=== PATIENT | female | born 1960 | race Caucasian/White ===

== ENCOUNTER → 2019-04-22 10:42 | Outpatient (CLI) | payer OTHER, SELFPAY ==
[2019-04-22 12:06] LABS: Add Manual Diff / Slide Review NO; Basophils Absolute Auto 0 /uL (0-100); Basophils Percent Auto 0.7 % (0-2); Eosinophils Absolute Auto 200 /uL (0-450); Eosinophils Percent Auto 4.1 % (2-4); Hematocrit 39.8 % (36-46); Hemoglobin 13.5 g/dL (12.0-16.0); Lymphocytes Absolute Auto 1800 /uL (1100-4500); Lymphocytes Percent Auto 33.8 % (25-40); Mean Corpuscular HGB Conc 33.9 % (30-36); Mean Corpuscular Hemoglobin 31.8 PG (26-34); Mean Corpuscular Volume 93.6 fL (80-100); Monocytes Absolute Auto 400 /uL (0-900); Monocytes Percent Auto 7.6 % (3-14); Neutrophils Absolute Auto 2900 /uL (1500-7000); Neutrophils Percent Auto 53.8 % (50-75); Platelet Count 267 X10^3/uL (150-400); Red Blood Cell Count 4.25 X10^6/uL (4.0-5.2); Red Cell Distribution Width 13.6 % (11.6-14.8); White Blood Cell Count 5.4 X10^3/uL (4.5-11.0)
[2019-04-22 12:47] LABS: Carbon Dioxide 29 mmol/L (22-32); Chloride 103 mmol/L (98-107); HEMOLYSIS < 15 (0-50); Potassium 5.2 mmol/L (3.4-5.1); Sodium 142 mmol/L (137-145)
== END ==
PROVIDERS: Visit Provider Orthopaedic Surgery
DX: Z01.818 Encounter for other preprocedural examination (principal); Z01.812 Encounter for preprocedural laboratory examination; M17.10 Unilateral primary osteoarthritis, unspecified knee
CPT/HCPCS: 36415; 80051; 85025; 93005

== ENCOUNTER 2019-05-25 08:36 | Inpatient (IN) | payer OTHER, SELFPAY ==
[2019-05-19 07:39] VITALS: BMI 37.9
[2019-05-25] VITALS (13 sets, daily range): BP systolic 79–163; BP diastolic 39–86; PULSE 53–88; RESP 14–20; TEMP 36.1–37.1; O2SAT 94–99; BMI 37.9
--- NOTE | 2019-05-25 06:00 | DI.RAD.S_ITS ---
PROCEDURE: XR KNEE RT 1TO2V INDICATIONS: post op right TKA TECHNIQUE: 2 view(s) of the knee acquired. COMPARISON: None. FINDINGS: Bones: Patient is status post knee joint arthroplasty. Hardware components are in expected positions. Visualized bony structures are intact. Soft tissues: Overlying postoperative changes are noted. IMPRESSION: Total knee arthroplasty with prosthesis in anatomic alignment. Dictated by: Kassidy Lebron M.D. on 05/25/2019 at 12:45 Approved by: Kassidy Lebron M.D. on 05/25/2019 at 12:45
[2019-05-25] MEDS: LACTATED RINGERS 1,000 ML 42 ML IV (09:13)
[2019-05-25] MEDS: PREGABALIN 75 MG CAPSULE PO (09:33)
[2019-05-25] MEDS: CELECOXIB 200 MG CAPSULE PO (09:34)
[2019-05-25] MEDS: ACETAMINOPHEN 325 MG TABLET 975 MG PO (09:34)
--- NOTE | 2019-05-25 10:01 | PM.PREOP ---
Pre-operative Note Interval Note History & Physical reviewed/Exam performed by Physician: Yes Changes to H&P: No
--- NOTE | 2019-05-25 10:01 | PM.OP.1 ---
Operative Date/Time/Diagnoses Date of procedure: 05/25/19 Time of procedure: 12:02 Pre-op diagnosis: Right knee osteoarthritis Post-op diagnosis: same Procedure & Clinicians Procedure: Right total knee arthroplasty Same procedure as scheduled: Yes Indications: The patient presents today for total knee arthroplasty after failure of conservative treatment. The nature of the procedure including the risks and benefits, alternatives, postoperative course and expected outcome were discussed and all questions answered. Consent was obtained. Operative site confirmed and marked. Surgeon: Mu Gutierrez Heater Planer Operator: Christopher Gonsalves Anesthesia Type: General, Spinal and Local Operative Notes Findings: The patient had severe osteoarthritis with varus alignment and a approximate 12 degree flexion contracture. A +2 femoral cut was made due to this contracture. Approximately 10 mm was taken from the less affected lateral side for the tibial cut. The knee balanced nicely medial lateral with routine osteophyte removal and soft tissue releases. The knee went easily into full extension. Patellar tracking was excellent. Closure Type: primary Specimen(s): none sent Prosthetic devices, grafts, tissues, transplants, or devices: Pulido and Nephew Arabella BCS: 4 femoral component, 3 tibial component, 9 mm BCS polyethylene tray and 35 x 7.5 mm round patella Applied: implant(s) Estimated Blood Loss (mL): 10 Blood products transfused: none Tourniquet time (min): 44 Procedure in detail: The patient was taken to the operative suite and placed under general and spinal anesthesia. The patient was given prophylactic antibiotics prior to surgery. The patient was also given tranexamic acid, 1 g, just prior to surgery for postoperative hemostasis. The lateral knee was prepped and the joint injected with 20 mL of 1% Lidocaine with epinephrine. The knee was then prepped and draped in usual sterile fashion. The leg was exsanguinated with an Esmarch dressing and the tourniquet raised to 250 torr. A 15 cm anterior incision was made. Next a medial trivector arthrotomy was made. The extensor mechanism was marked to ensure accurate repair. Initial exposing dissection was carried out medially and laterally. The knee was then flexed and the intramedullary femoral guide deedee placed. The distal femoral cut was made in 6? of valgus at the +2 position. The femoral size was measured and the appropriate cutting block was then placed and the anterior, posterior and chamfer cuts made. The intramedullary tibial alignment deedee was then placed. The guide was set to remove approximately 10 mm from the less affected lateral side. The proximal tibial cut was then made with an oscillating saw. All meniscus and bony debris was then removed. Posterior femoral osteophytes removed with a curved osteotome. Flexion extension gaps were checked. No specific balancing was required other than routine exposure and removal of osteophytes. The soft tissues were then injected with a combination of 20 mL of half percent Marcaine with epinephrine and 20 mL of Exparel. The trial components were then placed. The knee was then extended and the patellar thickness was measured and a cut made removing approximately 7-8 mm of bone. The patella was then sized and drilled. Some excess lateral bone was excised and the patellofemoral ligament released. The knee went into full extension and flexion beyond 120?. There was excellent medial-lateral balance throughout motion. Patellar tracking was excellent. The trial components were removed and the knee was cleansed with Pulsavac irrigation and dried. The final components were cemented with high viscosity vacuum mixed bone cement with antibiotics. The joint was filled with a dilute Betadine solution. The knee was held in extension and the patellar clamped until the cement was adequately cured. The knee was then irrigated. The extensor mechanism was closed with 5 interrupted #1 Vicryl sutures and a running Quill suture at approximately 90 degrees of flexion. The joint was then injected with a combination of 1 g of tranexamic acid and 20 mL of quarter percent Marcaine with epinephrine. The subcutaneous tissue was closed with 2 0 Vicryl. The skin was closed with magan and surgical adhesive. An Aquacel dressing and Kameron wrap were then applied. The patient tolerated the procedure well and was returned to recovery room in good condition. Complications: none Post-operative Condition: stable Disposition: PACU Plan for aftercare: [facility] protocol for total knee arthroplasty.
[2019-05-25] MEDS: CEFAZOLIN 2 GM/100 ML FROZ.PIGGY IV ×2 (10:34→19:32)
--- NOTE | 2019-05-25 11:06 | SUR.OPER ---
Supine on padded OR bed. Pillow under head, arms secured on padded armboards <90 degree abduction. Safety belt across torso. Non-operative leg secured with tape over blanket over lower leg. Operative leg secured in DeMayo/Ubaldo positioner. Foam padded brace at thigh of operative leg.
[2019-05-25] MEDS: BUPIVACAINE 0.25% W/ EPI (PF) 20 ML, TRANEXAMIC ACID 1,000 MG, SODIUM CHLORIDE 0.9% 10 ML INJ (11:10)
[2019-05-25] MEDS: BUPIVACAINE 0.25% W/ EPI (PF) 40 ML, BUPIVACAINE LIPOSOME 266 MG, SODIUM CHLORIDE 0.9% ... INJ (11:12)
[2019-05-25] MEDS: TRANEXAMIC ACID 1,000 MG VIAL 1000 MG INJ (11:13)
[2019-05-25] MEDS: LIDOCAINE 1% W/EPI 20 ML INJ (11:15)
[2019-05-25] MEDS: LACTATED RINGERS 1,000 ML 125 ML IV ×2 (13:40→20:19)
[2019-05-25] MEDS: IBUPROFEN 400 MG TABLET PO ×3 (13:40→20:18)
--- NOTE | 2019-05-25 15:02 | PC.NURSE ---
Assess- Patient to floor at 1245. She had a spinal to her r.knee and has feeling down to about her thigh. She denies pain. Patient is on Lactated Ringers at 125cc/hr and tolerating well. Given Ibuprofen and pt is visiting with her daughter and . Tolerating ice chips and ate some vanilla pudding. Patient has an aquacel dressing to her r.knee without any rylee wrap.
--- NOTE | 2019-05-25 16:15 | PT.IIE ---
Current Diagnoses Unilateral primary osteoarthritis, right knee (05/25/19) Surgery Performed Operation Date: 05/25/19 10:45 Actual Procedures p Total Knee Arthroplasty(Right) - Mu Gutierrez MD Surgical History (Last Updated 05/19/19 @ 08:08 by Elaina Love, RN) History of surgery (Acute) Medical History (Last Updated 05/19/19 @ 08:08 by Elaina Love RN) Easy bruisability (Acute) Osteoarthritis (Acute) Physical Therapy Inpatient Evaluation/Re-Eval M1 PT/OT-IP Prior Functional Status Start: 05/25/19 17:42 Freq: NEEDED Status: Active Protocol: Document 05/25/19 16:15 AB (Rec: 05/25/19 18:03 AB [id number]) Medical Review Prior Functional Status Medical History Reviewed Yes Communication able to make needs known Mobility and Gait pt stated that she is inependent with all mobilities and ambultion without AD Social History Household Members spouse Living Arrangements House Number of Floors (Floors) Two Floors Number of Stairs To Enter/Railing? stated that she stays on the main level of the house has no steps to enter the house Home Environment High Toilet,Walk in Shower Home Equipment Front Wheel Walker,Straight Cane,Crutches,Hand Held Shower ,Grab Bars In Shower Additional Social History Comment daughter is also staying with pt fo the holidays and can assist pt at home M2 PT-IP Current Condition Start: 05/25/19 17:42 Freq: NEEDED Status: Active Protocol: Document 05/25/19 16:15 AB (Rec: 05/25/19 18:03 AB [id number]) Physical Therapy Current Condition Current Condition Evaluation Date 05/25/19 Treatment Diagnosis s/p R TKA; difficulty in walking Onset Date 05/25/19 Weight Bearing Status Weight Bearing Status Weight Bear as Tolerated Allowed Weight Bearing Amount (enter % WBAT RLE or #) (%) M3 PT-IP Subjective Start: 05/25/19 17:42 Freq: NEEDED Status: Active Protocol: Document 05/25/19 16:15 AB (Rec: 05/25/19 18:03 AB [id number]) Subjective Physical Therapy Visit Type Type Initial Evaluation Visit Start Time 16:15 Visit Stop Time 16:47 Total Visit Minutes 32 Number of FUNERAL WORKERS Visits 0 Physical Therapy Visit Comments Patient Comments pt stated she is sleepy but agreeable to do PT Therapy Pain Assessment Pain When Pain Assessed During Mobility Pain Present Pain Present Pain Reported Location Right Knee Intensity 3 Scale Used increases with mobility Pain Management Techniques Apply Cold,Re-positioning, Timing of Activity with Medications M4 PT-IP Mobility and Gait Start: 05/25/19 17:42 Freq: NEEDED Status: Active Protocol: Document 05/25/19 16:15 AB (Rec: 05/25/19 18:03 AB [id number]) PT-Bed Mobility Assessment Supine to Sit Supine to Sit Standby Assistance Sit to Supine Sit to Supine Standby Assistance Scooting Scooting to Edge of Bed Standby Assistance PT-Transfer Assessment Sit to and From Stand Sit to and from Stand Minimal Assistance,1 Person Assistance Equipment Transfer Assistive Device Gait Belt,Front Wheeled Walker Orthotic/Prosthetic Devices or Brace: No Transfers Transfer Destination Toilet Transfer Technique ambulated using fWW Transfer Ability Level of Assist Minimal Assistance,1 Person Assistance,Use of Upper Extremities Comments Mobility Comments supine BP: 106/12 pt completed supine to sit SBA. BP sitting on EOB: 127/73. pt c/ o feeling lightheaded and BP checked again after ~ 2 min: 114/68. completed sit to stand min A and cues and ambulated to the toilet using FWW min A and cues. pt required min A for controlled descent to the toilet. completed sit to stand from the toilet using grab bar min A and cues and ambulated back to bed using FWW min A and cues. completed sit to supine SBA. positioned pt in bed. call light and table placed within reach. BP at end of tx session: 109/74 Gait Assessment Gait Gait Assistance Required: Minimum Assistance Distance (Feet) 12 Able to Maintain Weight Bearing Status Yes During Gait Assistive Devices Assistive Device Gait Belt,Front Wheeled Walker Orthotic/Prosthetic Devices or Brace: No Gait Deviations General Gait Pattern Antalgic,Decreased Stride Length,Decreased Feet Clearance Factors Limiting Gait Function Factors Limiting Gait Function Decreased Activity Tolerance, Decreased Strength,Limited Range of Motion,Pain,Poor Balance,Poor Safety Awareness PT-Balance Assessment Sitting Balance and Reactions Static Sitting Balance Ability Good Dynamic Sitting Balance Ability Good Standing Balance and Reactions Static Standing Balance Ability Fair Dynamic Standing Balance Ability Fair Device Used FWw M5 PT-IP Objective Assessments Start: 05/25/19 17:42 Freq: NEEDED Status: Active Protocol: Document 05/25/19 16:15 AB (Rec: 05/25/19 18:03 AB [id number]) Orientation Orientation/Cognition Level of Alertness Alert Orientation Name,Place,Situation Language Function Ability No Deficits Noted Safety Awareness Understands Safety Issues Memory Description No Deficits Noted Gross Range of Motion Lower Extremity ROM Impairments R knee flexion: ~ 90 deg Strength Lower Extremity Strength Assessment Right Impaired Hip 4-/5 Knee 3+/5 Coordination Assessment Gross Coordination Gross Coordination WNL M6 PT-IP Treatment Start: 05/25/19 17:42 Freq: NEEDED Status: Active Protocol: Document 05/25/19 16:15 AB (Rec: 05/25/19 18:03 AB [id number]) Physical Therapy Treatment Exercises Exercises Quad Sets,Heel Slides Education Education Provided Precautions,Weight Bearing Status,Post-Op Packet,Safety M7 PT-IP Assessment and Plan Start: 05/25/19 17:42 Freq: NEEDED Status: Active Protocol: Document 05/25/19 16:15 AB (Rec: 05/25/19 18:03 AB [id number]) PT Summary Assessment and Plan Potential Rehabilitation Potential Good Status of Condition at Evaluation Stable Summary Impairments Pain,ROM,Strength,Balance, Coordination,Sensation,Bed Mobility,Transfers,Gait, Activity Tolerance Assessment Summary pt requiring min A with mobility and will likely progress during hospital stay. pt has her family to assist her. will continue to assess progress and will conduct caregiver training when needed . Goals Bed Mobility Goal Independent Transfer Goal Independent,Front Wheeled Walker Gait Goal Independent,Front Wheel Walker Gait Distance 200 Days to Meet Goals 5 Frequency of Treatment Frequency Of Treatment Twice a Day Treatment Plan Physical Therapy Treatment Plan Bed Mobility Training,Transfer Training,Gait Training, Therapeutic Exercise,Balance Retraining,Post Op Education, Discharge Planning,Hot or Cold Pack,Neuromuscular Re-ed, Coordination Retraining,Manual Therapy Recommendations To Nursing Amount of Assist Needed 1 Person Assist Discharge Recommendations PT Discharge Recommendations Home with Assistance, Outpatient PT
[2019-05-25] MEDS: ACETAMINOPHEN 325 MG TABLET 650 MG PO (18:12)
[2019-05-25] MEDS: ASPIRIN EC 81 MG TABLET PO (20:18)
--- NOTE | 2019-05-25 22:28 | PC.NURSE ---
Assumed care of pt at 1500. Pt resting in bed during bedside hand-off. CMS+. Reports full sensation to RLE. Drsg c/d/i. Bruising an swelling around knee noted. P.T. in for eval and treat. See P.T. documentation for details. Using lin path I.S.; enc to use 10x/hr while awake. Reporting mild pain and requests Tylenol. Rec VTO from Dr. Todd for Tylenol and Oxycodone. Pt reports she has scripts for Oxycode for post-op pain once she is d/c from hospital. Calling appropriate for needs. Bed alarm on for safety.
[2019-05-26] MEDS: IBUPROFEN 400 MG TABLET PO ×4 (00:04→12:39)
[2019-05-26] MEDS: ACETAMINOPHEN 325 MG TABLET 650 MG PO ×3 (00:04→12:40)
[2019-05-26] MEDS: CEFAZOLIN 2 GM/100 ML FROZ.PIGGY IV (03:04)
[2019-05-26 03:22] VITALS: BP 141/58; PULSE 58; RESP 17; TEMP 36.8; O2SAT 97
[2019-05-26 06:04] LABS: Hematocrit 34.2 % (36-46); Hemoglobin 11.5 g/dL (12.0-16.0)
[2019-05-26 07:30] VITALS: BP 117/64; PULSE 66; RESP 16; TEMP 36.5; O2SAT 97
[2019-05-26 08:08] VITALS: PULSE 69; O2SAT 99
[2019-05-26] MEDS: ASPIRIN EC 81 MG TABLET PO (09:14)
--- NOTE | 2019-05-26 09:18 | PT.IPTN ---
This is to certify that I have reviewed this documentation and is involved with this pt's care. Current Diagnoses Unilateral primary osteoarthritis, right knee (05/25/19) Surgery Performed Operation Date: 05/25/19 10:45 Actual Procedures p Total Knee Arthroplasty(Right) - Mu Gutierrez MD Physical Therapy Treatment Note M2 PT-IP Current Condition Start: 05/25/19 17:42 Freq: NEEDED Status: Discharge Protocol: Document 05/25/19 16:15 AB (Rec: 05/25/19 18:03 AB [id number]) Physical Therapy Current Condition Current Condition Evaluation Date 05/25/19 Treatment Diagnosis s/p R TKA; difficulty in walking Onset Date 05/25/19 Weight Bearing Status Weight Bearing Status Weight Bear as Tolerated Allowed Weight Bearing Amount (enter % WBAT RLE or #) (%) M3 PT-IP Subjective Start: 05/25/19 17:42 Freq: NEEDED Status: Discharge Protocol: Document 05/26/19 09:18 MT (Rec: 05/26/19 12:02 MT [id number]) Subjective Physical Therapy Visit Type Type Treatment Note Visit Start Time 09:18 Visit Stop Time 09:38 Total Visit Minutes 20 Number of FLIGHT SURGEON Visits 0 Physical Therapy Visit Comments Patient Comments Pt aggreable to do PT Therapy Pain Assessment Pain When Pain Assessed pt :sore M4 PT-IP Mobility and Gait Start: 05/25/19 17:42 Freq: NEEDED Status: Discharge Protocol: Document 05/26/19 09:18 MT (Rec: 05/26/19 12:02 MT [id number]) PT-Bed Mobility Assessment Supine to Sit Supine to Sit Independent Scooting Scooting to Edge of Bed Standby Assistance PT-Transfer Assessment Sit to and From Stand Sit to and from Stand Independent,Standby Assistance ,Use of Upper Extremities Equipment Transfer Assistive Device Gait Belt,Front Wheeled Walker Orthotic/Prosthetic Devices or Brace: No Transfers Transfer Destination Chair,Toilet Transfer Technique ambulated using fWW Transfer Ability Level of Assist Standby Assistance,Use of Upper Extremities Comments Mobility Comments Pt was found sitting up in bed rior to start of treatment. Pt was able to get to sitting EOB with SBA. Pt's Bp in sitting was 111/58 and she reported no symptoms of dizziness of lightheadedness. Pt attempted sit to stand from bed, but was asked to sit back down and try again, because she used the 2WW to pull herself and PT had to brace walker to prevent it from tipping back on the pt. Pt was educated to push up from bed rather than pull up when standing using the 2WW. Pt performed second attempt at sit to stand from bed using 2WW and SBA. She required cueing to tighten through her quad to maintian stability in her R LE. Pt initiated ambulation. Pt ambulated to the toilet. She was able to perform stnd<> sit using 2WW to toilet independently and maintain her pericare without assistance. Pt performed tand to sit in chair independently using 2WW and was positioned with her call light and table within reach. Gait Assessment Gait Gait Assistance Required: Standby Assistance Distance (Feet) 150 Able to Maintain Weight Bearing Status Yes During Gait Assistive Devices Assistive Device Gait Belt,Front Wheeled Walker Orthotic/Prosthetic Devices or Brace: No Gait Deviations General Gait Pattern Antalgic,Decreased Stride Length,Decreased Feet Clearance Factors Limiting Gait Function Factors Limiting Gait Function Decreased Activity Tolerance, Decreased Strength,Limited Range of Motion,Pain,Poor Balance,Poor Safety Awareness Comments Gait Comments Pt ambulated 20 feet to toilet using 2WW and SBA. Pt then ambulated within room and hallway using 2WW 200ft and SBA, with minimal cueing for tightening quad for stability and safety. M5 PT-IP Objective Assessments Start: 05/25/19 17:42 Freq: NEEDED Status: Discharge Protocol: Document 05/25/19 16:15 AB (Rec: 05/25/19 18:03 AB [id number]) Orientation Orientation/Cognition Level of Alertness Alert Orientation Name,Place,Situation Language Function Ability No Deficits Noted Safety Awareness Understands Safety Issues Memory Description No Deficits Noted Gross Range of Motion Lower Extremity ROM Impairments R knee flexion: ~ 90 deg Strength Lower Extremity Strength Assessment Right Impaired Hip 4-/5 Knee 3+/5 Coordination Assessment Gross Coordination Gross Coordination WNL M6 PT-IP Treatment Start: 05/25/19 17:42 Freq: NEEDED Status: Discharge Protocol: Document 05/26/19 09:18 MT (Rec: 05/26/19 12:02 MT [id number]) Physical Therapy Treatment Education Education Provided Safety M7 PT-IP Assessment and Plan Start: 05/25/19 17:42 Freq: NEEDED Status: Discharge Protocol: Document 05/26/19 09:18 MT (Rec: 05/26/19 12:02 MT [id number]) PT Summary Assessment and Plan Potential Rehabilitation Potential Good Status of Condition at Evaluation Stable Summary Impairments Pain,ROM,Strength,Balance, Coordination,Sensation,Bed Mobility,Transfers,Gait, Activity Tolerance Progress Towards Goals Progressing Toward Goals Assessment Summary Pt is generally SBA for her mobility and gait using 2WW. She is still appropriate for a discharge destination of home with asssitance from and daughter and following discharge. Pt still requires some cues for safety with her gait/mobility and puts a lot of weight through her UE on the 2WW, so she will continue to benefift from skilled PT in order to ensure that family at home can provde enough assistance to meet the patient 's needs and increase the patient's stability and safety in gait and transfers. Goals Bed Mobility Goal Independent Transfer Goal Independent,Front Wheeled Walker Gait Goal Independent,Front Wheel Walker Gait Distance 200 Days to Meet Goals 5 Frequency of Treatment Frequency Of Treatment Twice a Day Treatment Plan Physical Therapy Treatment Plan Bed Mobility Training,Transfer Training,Gait Training, Therapeutic Exercise,Balance Retraining,Post Op Education, Discharge Planning,Hot or Cold Pack,Neuromuscular Re-ed, Coordination Retraining,Manual Therapy Recommendations To Nursing Amount of Assist Needed 1 Person Assist Discharge Recommendations PT Discharge Recommendations Home with Assistance, Outpatient PT
--- NOTE | 2019-05-26 10:39 | P.DS_ITS ---
History of Present Illness History of Present Illness Date Patient Seen: 05/26/19 Time Patient Seen: 10:39 Chief complaint: [id number] Narrative: Hospital day 2, postop day 1 following right total knee arthroplasty by Dr. Gutierrez. Patient has remained stable postoperatively. Has progressed well with physical therapy at [facility] feel she is stable to go home. She is sc heduled go to [facility] in [place]. She is a [facility] patient and has prescription at home for oxycodone Discharge Providers Provider Date of admission: 05/25/19 08:36 Discharge Date: 05/26/19 Consults: 05/25/19 12:52 Consult to Discharge Planning Routine Comment: Consult to Physical Therapy Evaluate & Treat Comment: Physician Instructions: postop TKA protocol Consult to Respiratory Therapy Evaluate & Treat Comment: Physician Instructions: Evaluate and treat Discharge provider: Kolton Carrera PA-C Summary Hospital Course Discharge Diagnosis: Status post right total knee arthroplasty Hospital Course: Patient brought to hospital on 05/25/2019 for above surgery. Remained stable postoperatively. Progressed well with physical therapy. Ready for discharge home on postop day 1. Status at Discharge Cognitive/behavioral status at discharge: oriented Functional status at discharge: uses cane/walker Overall status at discharge: patient is progressing back to baseline Time Spent with Patient Time spent: Less than 30 minutes Exam Vital Signs (past 8 hours): - 05/26/19 03:22 05/26/19 07:30 05/26/19 08:08 Temperature 98.2 F 97.7 F Pulse Rate 58 L 66 69 Respiratory Rate 17 16 Blood Pressure 141/58 H 117/64 Pulse Oximetry 97 97 99 Oxygen Delivery Method Room Air Oxygen Flow Rate 0 Narrative Exam Narrative: Alert, oriented no acute distress sitting in chair. Legs. Kameron wrap an Aquacel dressing to right knee is dry without drainage or inflammation. Mild swelling of the knee. No calf pain or swelling. Pulses symmetrical. Objective Labs Result Diagrams: 05/26/19 05:40 Labs: Laboratory Results - last 24 hr 05/26/19 05:40 Hgb 11.5 L Hct 34.2 L Discharge Plan Discharge Plan Patient Disposition: Home Discharge comment: Discharged home today after cleared by PT. She is a [facility] patient and has prescription for oxycodone at home. She is scheduled go to [facility] in [place]. Discharge orders & Medications Prescriptions: New aspirin 81 mg Tablet,Delayed Release (Dr/Ec) 81 mg PO BID Qty: 60 RF: 0 acetaminophen 325 mg Tablet 650 mg PO Q4HR PRN (Reason: Fever/Mild Pain (1-3)) Qty: 30 RF: 0 Continued ibuprofen 200 mg Tablet 600 mg PO Q6H PRN (Reason: Pain) RF: 0 Discontinued naproxen sodium [Aleve] 220 mg Capsule 220 mg PO BID PRN (Reason: Pain) RF: 0 Discharge Health Status Multidrug resistant organism: No MDRO Diet/Activity/Treatments Diet: Diet as Tolerated Activity: Ambulate as tolerated. Use walker as needed. Cold/Heat Therapy: Cold pack to right knee as needed. Other treatments: Take aspirin 81 mg 1 b.i.d. x1 month postop. Skin/Wound/Dressing Care Report to your healthcare provider any signs of infection, such as:: chills, fever, night sweats, increased pain, unusual drainage and unusual redness Dressing: Keep Aquacel dressing in place until postop visit. Remove Kameron wrap on postop day 2. Visit Report/Discharge Packet Instructions: DI for Knee Replacement, DI for Prescription Opioid Use Quality VTE Deep Vein Thrombosis/Pulmonary Embolism Present on Admission: No
--- NOTE | 2019-05-26 10:56 | PC.NURSE ---
Pt is awake and sitting up in chair. She has an aquacel dressing to her r.knee, leg is swollen with 2-3+ edema. She states that her pain is a 4/10, given tylenol and ibuprofen and patient denies discomfort. She will be discharging home with her around 1230 today.
--- NOTE | 2019-05-26 15:21 | CM.IDA ---
Initial DCP Assessment Note: Pt is a 59 yo female, resident of [place], now POD#1 from uni knee surgery w/ Dr Gutierrez PCP: Fernando Murphy Payer: Poornima RODRIGUEZ Reviewed chart, pt discussed in multidisciplinary rounds this morning. Therapy has cleared pt for return home w/family to assist and pt has planned for home, DC order from Ortho PA has already been initiated this morning. Pt eager to return home today No needs identified from DC planning team KAREN Hernandez
== END 2019-05-26 12:45 | disposition home or self-care (01) | DRG 470 ==
PROVIDERS: Admitting Provider Orthopaedic Surgery; Visit Provider Orthopaedic Surgery
PROC: 0SRC0JZ Replacement of Right Knee Joint with Synthetic Substitute, Open Approach (ICD-10-PCS; CPT 27447; principal; 2019-05-25 10:45)
DX: M17.11 Unilateral primary osteoarthritis, right knee (principal)
CPT/HCPCS: 36415; 73560; 85014; 85018; 94760; 97116; 97161; C1776; C9290; J0690; J1100; J2250; J2405; J2704; J3010